=== PATIENT | male | born 2005 | race Caucasian/White ===

== ENCOUNTER 2025-06-20 17:39 | Emergency (ER) | payer BC ==
[2025-06-20 18:29] LABS: #Basophils 0.04 10x3/uL (0.0-0.2); #Eosinophils 0.21 10x3/uL (0.0-0.7); #Monocytes 0.74 10x3/uL (0.11-0.59); #Neutrophils 2.78 10x3/uL (1.40-6.50); %Basophils 0.7 % (0.0-1.0); %Eosinophils 3.5 % (0.0-10.0); %Lymphocytes 37.1 % (28.0-48.0); %Monocytes 12.2 % (0.0-4.0); %Neutrophils 45.8 % (31.0-61.0); Hematocrit 46.1 % (42.0-52.0); Hemoglobin 15.4 g/dL (14.0-18.0); Mean Corpuscular Hemoglobin 30.4 pg (25.0-35.0); Mean Corpuscular Volume 91.1 fL (78.0-98.0); Platelet Count 226 10x3/uL (130-400); Red Blood Cell (RBC) Count 5.06 mill/uL (4.00-5.20); White Blood Cell (WBC) Count 6.06 10x3/uL (4.8-10.8)
[2025-06-20 18:50] LABS: Lipase 34 U/L (8-78)
[2025-06-20 18:52] LABS: ALT (SGPT) 82 U/L (Less than 45); AST (SGOT) 113 U/L (11-34); Acetaminophen Less than 10 mcg/mL (Less than 10); Albumin 4.7 g/dL (3.1-4.5); Alkaline Phosphatase 63 U/L (50-130); Anion Gap 21 mmol/L (10-20); BUN (Urea Nitrogen) 17 mg/dL (8.9-20.6); Bilirubin, Total 0.3 mg/dL (0.3-1.2); CK (CPK) 168 U/L (30-200); Calc. Creatinine Clearance 0 mL/min (70-130); Calcium 9.6 mg/dL (7.8-10.44); Carbon Dioxide 19 mmol/L (22-29); Chloride 105 mmol/L (98-107); Globulin 3.0 g/dL (2.4-3.5); Glucose 76 mg/dL (70-105); Potassium 3.7 mmol/L (3.5-5.1); Salicylate Less than 8.0 mg/dL (Less than 8.0); Sodium 141 mmol/L (136-145)
[2025-06-20] MEDS ORDERED: diphenhydrAMINE 50 MG/ML VIAL ONE (18:54)
[2025-06-20] MEDS ORDERED: Metoclopramide HCl 10 MG (2 mL) VIAL ONE (18:55)
== END 2025-06-20 21:36 | disposition home or self-care (01) ==
LOC: ERS 17:39
DX: E10.649 Type 1 diabetes mellitus with hypoglycemia without coma (principal); R56.9 Unspecified convulsions; Z79.4 Long term (current) use of insulin
CPT/HCPCS: 36416; 70450; 80053; 80307; 82550; 83690; 84443; 84484; 85025; 93005; 94760; 96374; 96375; J1200; J2765